=== PATIENT | male | born 1975 | race Caucasian/White ===

== ENCOUNTER → 2018-10-10 12:00 | Outpatient (CLI) | payer OTHER, SELFPAY ==
[2018-10-10 12:18] LABS: Erythrocyte Sedimentation Rate 3 mm/hr (0-15)
[2018-10-10 12:24] LABS: CRP < 2.90 mg/L (0.0-3.0)
== END ==
LOC: OLS.WCEH 12:00
PROVIDERS: Visit Provider Family Medicine
DX: R53.83 Other fatigue (principal); R63.4 Abnormal weight loss
CPT/HCPCS: 84403; 85652; 86140

== ENCOUNTER 2019-12-03 07:38 | Emergency (ER) | payer OTHER, SELFPAY ==
[2019-12-03 07:39] VITALS: BP 98/67; PULSE 104; RESP 17; TEMP 36.3; O2SAT 98; BMI 22.4
--- NOTE | 2019-12-03 08:18 | RAD_ITS ---
STUDY: X-RAY CHEST REASON FOR EXAM: Male, 44 years old. COUGH, SORE THROAT, HEADACHE, FATIGUE, CONGESTION TECHNIQUE: Single AP portable view of the chest. COMPARISON: None. FINDINGS: Hyperinflation. The lungs are clear. There is no demonstrated pleural abnormality. Normal size heart. Normal mediastinum and feliciano. Normal visualized pulmonary arteries. Normal visualized aortic arch and descending thoracic aorta. Normal visualized thoracic spine. Normal visualized ribs, clavicles, and shoulders. There is no demonstrated abnormality of the visualized soft tissue structures of the upper abdomen. RAD/Chest 1 View (Portable) IMPRESSION: Hyperinflation. The lungs are clear. Electronically Signed: Prince Chávez, at 9:56 EDT , Service support ,
[2019-12-03] MEDS: Ketorolac 15 MG/ML Vial IV (08:34)
[2019-12-03] MEDS: Ondansetron 4 MG/2 ML Vial IV (08:34)
[2019-12-03] MEDS: 0.9% Normal Saline 1,000 ML 1000 ML IV (08:35)
[2019-12-03 08:44] LABS: Absolute Lymphocyte Count 0.91 X10^3/uL (0.83-4.51); Absolute Neutrophil Count 7.5 X10^3/uL (2.0-7.7); Basophil# 0.02 X10^3/uL; Basophil% 0.2 % (0-1); Eosinophil# 0.18 X10^3/uL; Eosinophils% 1.9 % (0-5); Hematocrit 42.8 % (40-54); Hemoglobin 14.1 g/dL (13.0-16.5); Lymphocyte # 0.91 X10^3/ul (4.0); Lymphocyte % 9.5 % (19-41); Mean Corp Hgb Conc 32.9 g/dL (32-36); Mean Corpuscular Hgb 29.9 pg (27.0-32.0); Mean Corpuscular Volume 90.7 fL (80-94); Monocyte# 0.92 X10^3/uL; Monocyte% 9.6 % (0-10); NRBC Flagged by Analyzer 0 % (0-5); Neutrophil # 7.51 X10^3/uL (2.7-7.7); Neutrophil % 78.5 % (47-70); Platelet Count 192 K/mm3 (150-450); RBC Distribution Width CV 11.9 % (11.6-14.6); RBC Distribution Width SD 39.3 fl (35.1-43.9); Red Blood Count 4.72 M/mm3 (4.6-6.2); White Blood Count 9.6 K/mm3 (4.4-11.0)
[2019-12-03 08:56] LABS: Anion Gap 5 (5-15); BUN 16 mg/dL (7-18); BUN/Creat Ratio 11.8 RATIO (10-20); Calcium,Total 8.5 mg/dL (8.5-10.1); Chloride 106 mmol/L (98-107); Creatinine, Serum 1.36 mg/dL (0.70-1.30); EST Glomerular Filtration Rate 60 mL/min (>60); Est Glom Filt Rate - Afr Amer 73 mL/min (>60); Estimated Creatinine Clearance 68.69 ml/min; Glucose 71 mg/dL (74-106); Potassium 3.7 mmol/L (3.5-5.1); Sodium Level 141 mmol/L (136-145)
--- NOTE | 2019-12-03 09:35 | ED.DCSUM_ITS ---
- ER Visit Summary Date of Service: 12/03/19 Chief Complaint: Cough and sore throat History of Present Illness: The patient is a [address] Melendez. He is a adjudication specialist. No known exposure to coronavirus. He reports that a coworker had this, but it was months ago. Reports that he has not felt well for the past 4 days. States that this began with a sore throat and difficulty swallowing. His sore throat is actually improving. 6 out of 10 in severity now. He denies any cheek fever or chills. Reports he has a cough is productive green discolored sputum that began yesterday. There is no blood in his sputum. He denies any chest pain or shortness of breath. Does complain of diffuse myalgias and a throbbing headache that is 8 out of 10 in severity. Finally the patient complains of generalized weakness and fatigue. Physical Examination: Vitals: Stable. Afebrile. General: Well-nourished and well-developed. Head: Normocephalic atraumatic. HEENT: Serous effusions behind his TMs bilaterally. There is no evidence of a purulent otitis media. He has pharyngeal erythema. There is no tonsillar exudate or enlargement. Neck: Supple, no lymphadenopathy. No JVD. Nontender. Cardiovascular: Regular rate and rhythm. No murmurs. Respiratory: No respiratory distress. Clear to auscultation bilaterally. Abdominal: Soft, nontender, nondistended, normal bowel sounds. No guarding, rebound, or peritoneal signs. Back: Nontender. Extremities: Nontender, no edema. Skin: Normal color, no rash. Neurologic: Alert and oriented ?3. Cranial nerves II through XII are intact. Normal strength and sensation. Psych: Normal affect. Test Results: CBC shows 7 neutrophils 79 lymphocytes of 10. Chem-7 shows a creatinine 1.36 and glucose of 71. Strep is negative. Chest x-ray shows no acute disease. COVID-19 is pending. Emergency Department Course and Treatment: Patient had an IV placed. He was given a liter of normal saline. He is given Toradol and Zofran IV. He is resting more comfortably. Treatment Plan: I had a prolonged discussion the patient of the COVID test will take 2 to 3 days to return. He needs to quarantine until then. If this returns and is negative that he may return to work, but needs to wear a mask. He does understand the risk of a false negative COVID test. Return to the emergency department for any worsening symptoms. Disposition: To home in improved and stable condition. Impression: 1. URI, possible COVID-19 infection. This note was generated with netomat dictation software. It may contain incorrect words, spelling, and punctuation that were not noted in review of the chart prior to signing ED Disposition - Plan for ED Patient: Instructions: ED Upper Resp Infec No Abx Tx Referrals: Eddie Melendez DO [Primary Care Provider] - 10-14 Days if not better
== END 2019-12-03 10:41 | disposition home or self-care (01) ==
LOC: ED 08:24
PROVIDERS: Emergency Provider Emergency Medicine; PCP Family Medicine
DX: J06.9 Acute upper respiratory infection, unspecified (principal); Z20.828 Contact with and (suspected) exposure to other viral communicable diseases
CPT/HCPCS: 71045; 80048; 85025; 87635; 87880; 94799; 96361; 96374; 96375; 99283; J7030; A4216; J2405; U0003

== ENCOUNTER → 2023-12-16 | Outpatient (CLI) | payer OTHER, SELFPAY ==
--- NOTE | 2023-12-16 13:05 | CT_ITS ---
STUDY: CT CHEST WITH CONTRAST REASON FOR EXAM: Male, 48 years old. CHEST PAIN RADIATION DOSAGE (If Supplied By Facility): CTDIvol = ( 30.63 ) mGy, DLP = ( 985.98 ) mGycm TECHNIQUE: Transaxial imaging was performed following intravenous administration of 50 mL of Isovue-370. Cardiac Overread examination. Individualized dose optimization techniques were used for this CT. COMPARISON: No relevant priors. FINDINGS: CHEST The lungs are normal. There is no demonstrated pleural abnormality. Normal heart and pericardium. No significant coronary artery calcification is seen. Normal mediastinum. Normal hilar regions. Normal unenhanced pulmonary arteries. Normal aorta arch and descending thoracic aorta. Normal osseous structures. There is no demonstrated abnormality of the visualized upper abdomen. CT/Limited Chest CT Cardiac Only IMPRESSION: Normal enhanced CT chest examination. Electronically Signed: Prince Chávez MD at 12:25 EDT ,
[2023-12-16 13:29] VITALS: BP 110/77; PULSE 81; RESP 18; TEMP 36.1; O2SAT 97; BMI 23.5
[2023-12-16 13:38] VITALS: BP 110/77; PULSE 85
[2023-12-16] MEDS: Metoprolol Tartrate 5 MG/5 ML Vial IV ×2 (13:38→14:07)
[2023-12-16] MEDS: 0.9% Saline Lock 10 ML Syringe IV (13:39)
[2023-12-16 14:07] VITALS: BP 117/73; PULSE 75
[2023-12-16 14:20] VITALS: PULSE 73
[2023-12-16] MEDS: Nitroglycerin SL (ED/IMG/CATH) 0.4 MG TABLET SL (14:20)
[2023-12-16 14:27] VITALS: BP 108/68; PULSE 73; RESP 18
--- NOTE | 2023-12-16 17:16 | CCTA.WCONT ---
CCTA w/Cont Coronary Arteries Date of Study:: 12/16/23 Chest pain Coronary Calcium Scoring: High-resolution Computed Tomographic imaging of the chest was performed on [12/16/2023], with particular attention paid to the coronary arteries. Intravenous contrast agent was administered per protocol and images reconstructed and displayed. LEFT MAIN CORONARY ARTERY: This arose from the left main coronary cusp and bifurcates to left anterior descending artery and left circumflex artery no significant stenosis was noted [] LEFT ANTERIOR DESCENDING CORONARY ARTERY: This was a medium size vessel arising from the left main coronary artery and coursing towards the apex of the ventricle. A diagonal vessel was noted with no significant atherosclerotic plaquing noted throughout this vessel. [] LEFT CIRCUMFLEX CORONARY ARTERY: This is a nondominant vessel with no significant atherosclerotic plaquing or obstructive stenosis noted [] RIGHT CORONARY ARTERY: Dominant right coronary artery with no significant atherosclerotic plaquing or significant stenosis present. Coronary CTA with no high-grade stenosis present. No coronary atherosclerosis present.
== END | disposition home or self-care (01) ==
PROVIDERS: PCP Family Medicine; Referring Provider Nurse Practitioner Family; Visit Provider Nurse Practitioner Family
DX: R07.9 Chest pain, unspecified (principal)
CPT/HCPCS: 75574; 76380; 96374; A4216